=== PATIENT | male | born 1940 | race Caucasian/White ===

== ENCOUNTER 2018-06-09 20:08 | Inpatient (IN) | payer MEDICARE, OTHER, SELFPAY ==
[~2018-06-09] VITALS: Ht 177.8 cm; Wt 102.7 kg
[2018-06-09] MEDS ORDERED: CLOP75TA PO (20:43)
[2018-06-09] MEDS ORDERED: METO25TA35 PO (20:43)
[2018-06-09] MEDS ORDERED: SITA50TA PO (20:43)
[2018-06-09] MEDS ORDERED: METF500T17 PO (20:53)
[2018-06-09] MEDS ORDERED: QUET50TA PO (20:53)
[2018-06-09] MEDS ORDERED: DIVA-59 PO (20:53)
[2018-06-09] MEDS ORDERED: OMEP-110 PO (20:53)
[2018-06-09] MEDS ORDERED: ATOR-2 PO (20:53)
[2018-06-09] MEDS ORDERED: LISI-167 PO (20:53)
[2018-06-09] MEDS ORDERED: TRAZ50TA66 PO (20:53)
--- NOTE | 2018-06-09 21:17 | NUR ---
REPORT TO RADHA
[2018-06-09 21:25] LABS: MEAN CORPUSCULAR HEMOGLOBIN 29.2 pg (27.5-34.5); MEAN CORPUSCULAR HGB CONC 33.2 g/dL (33.2-36.2); MEAN CORPUSCULAR VOLUME 88.1 fL (81-97); MEAN PLATELET VOLUME 7.4 fL (7.4-10.4); PLATELET COUNT 320 x10^3/uL (130-400); RED BLOOD COUNT 4.02 x10^6/uL (4.38-5.82); RED CELL DISTRIBUTION WIDTH 15.6 % (9.4-14.8)
[2018-06-09 21:38] LABS: ALANINE AMINOTRANSFERASE 21 U/L (12-78); ALBUMIN 3.2 g/dL (3.4-5.0); ANION GAP 9 mmol/L (5-15); CALCIUM 9.5 mg/dL (8.5-10.1); CHLORIDE 109 mmol/L (98-107); CREATININE 1.76 mg/dL (0.7-1.3)
[2018-06-09 21:40] LABS: ALKALINE PHOSPHATASE 78 U/L (45-117); BILIRUBIN,TOTAL 0.3 mg/dL (0.2-1.0); TOTAL PROTEIN 6.4 g/dL (6.4-8.2)
[2018-06-09 21:45] LABS: BASOPHILS # (AUTO) 0.14 x10^3/uL (0-0.1); BASOPHILS % (AUTO) 1 % (0-1); EOSINOPHILS % (AUTO) 0 % (1-7); LYMPHOCYTES % (AUTO) 3 % (22-44); MD SCAN; MONOCYTES # (AUTO) 1.33 x10^3/uL (0.2-0.8); MONOCYTES % (AUTO) 7 % (2-9); NEUTROPHILS # (AUTO) 18.07 x10^3/uL (1.8-6.8); NEUTROPHILS % (AUTO) 90 % (42-75)
[2018-06-09] MEDS ORDERED: CEFTRIAXONE PMX 1GM/50ML 50 ML ONE (21:55)
[2018-06-09] MEDS ORDERED: CEFTRIAXONE PMX 1GM/50ML 50 ML IVPB ONE (22:00)
--- NOTE | 2018-06-09 22:08 | NUR ---
BC DRAWN BY HIDE HANDLER. ABX INFUSING. PT AWAKENS TO VOICE BUT NO VERBAL RESPONSE. RR 20-24.
[2018-06-09 22:19] LABS: INTERNATIONAL NORMALIZED RATIO 1.09 (0.93-1.1); PROTHROMBIN TIME 11.4 Seconds (9.6-11.5)
--- NOTE | 2018-06-09 22:20 | NUR ---
PT TO CT VIA [facility].
[2018-06-09 22:25] LABS: TROPONIN I 0.041 ng/mL (0.000-0.045)
[2018-06-09] MEDS ORDERED: AZITHROMYCIN 500 MG in SODIUM CHLORIDE 0.9% 250 ML IV ONE (23:00)
[2018-06-09] MEDS ORDERED: VANCOMYCIN 1,600 MG in SODIUM CHLORIDE 0.9% 250 ML IV ONE (23:00)
[2018-06-09] MEDS ORDERED: VANCOMYCIN PER PHARMACY IV ONE (23:00)
[2018-06-09] MEDS ORDERED: SODIUM CHLORIDE 0.9% 1,000ML IVBOLUS ONE (23:00)
--- NOTE | 2018-06-09 23:43 | NUR ---
UNABLE TO COLLECT URINE SAMPLE WITH STRAIGHT CATH. ERP NOTIFIED.
[2018-06-09] MEDS ORDERED: SODIUM CHLORIDE 0.9% 1,000 ML IV ONE (23:45)
[2018-06-10 00:59] VITALS: BP 112/76
[2018-06-10 01:02] VITALS: BP 112/76
[2018-06-10] MEDS ORDERED: VANCOMYCIN PER PHARMACY MC PRN (02:30)
[2018-06-10] MEDS ORDERED: ONDANSETRON 2MG/ML, 2ML IVPush PRN (02:30)
[2018-06-10] MEDS ORDERED: LABETALOL 5MG/ML, 20ML IVPush PRN (02:30)
[2018-06-10] MEDS ORDERED: LACTATED RINGERS 1,000 ML IV SCH (02:30)
[2018-06-10] MEDS ORDERED: ZOSYN PER PHARMACY MC PRN ×2 (02:30→07:30)
[2018-06-10] MEDS ORDERED: DEXTROSE 4 GM TAB.CHEW PO PRN (02:30)
[2018-06-10] MEDS ORDERED: GLUCAGON 1 MG IM PRN (02:30)
[2018-06-10] MEDS ORDERED: DEXTROSE 50%, 50ML SYRINGE IVPush PRN (02:30)
[2018-06-10] MEDS ORDERED: ACETAMINOPHEN 325 MG TABLET PO PRN (02:30)
[2018-06-10] MEDS: HEPARIN 5,000 UNITS/ML, 1ML SQ SCH ×3 (02:50→20:28)
[2018-06-10] MEDS ORDERED: LABETALOL 5 MG/ML SYRINGE IVPush PRN (03:00)
[2018-06-10] MEDS ORDERED: PHARMACOKINETIC MONITORING MC PRN (03:00)
[2018-06-10] MEDS ORDERED: PIPERACILLIN/TAZO(ZOSYN) 2.25 GM in NS 50 ML IVPB SCH (03:00)
[2018-06-10 03:07] LABS: TROPONIN I 0.047 ng/mL (0.000-0.045)
[2018-06-10 03:11] LABS: HEMOGLOBIN A1C 7.2 % (4.2-6.3)
[2018-06-10] MEDS: INSULIN LISPRO 100 UNITS/ML, PEN SQ-INSULIN SCH ×4 (07:00→21:16)
[2018-06-10 07:09] VITALS: BP 134/83
[2018-06-10] MEDS ORDERED: MAGNESIUM SULFATE PMX 2GM/50ML 50 ML IV ONE (07:30)
[2018-06-10] MEDS ORDERED: POTASSIUM PHOSPHATE 22 MEQ in SODIUM CHLORIDE 0.9% 500 ML IV ONE (07:30)
[2018-06-10] MEDS: SODIUM CHLORIDE FLUSH 10ML SYR IVF SCH ×2 (08:11→20:29)
[2018-06-10] MEDS: PIPERACILLIN/TAZO/PMX 2.25GM 50 ML IVPB SCH ×3 (08:27→21:15)
[2018-06-10 09:30] LABS: TROPONIN I 0.036 ng/mL (0.000-0.045)
[2018-06-10 12:08] VITALS: BP 111/71
[2018-06-10] MEDS: DIVALPROEX 250 MG TABLET.DR PO SCH ×2 (17:08→20:28)
[2018-06-10 19:05] VITALS: BP 135/67
[2018-06-10] MEDS: METOPROLOL TARTRATE 25 MG TABLET PO SCH (20:28)
[2018-06-10] MEDS: QUETIAPINE 25MG TABLET PO SCH (20:28)
[2018-06-10] MEDS: ATORVASTATIN 80 MG TABLET PO SCH (20:28)
[2018-06-11 00:08] VITALS: BP 131/75
[2018-06-11] MEDS ORDERED: LACTATED RINGERS 1,000 ML IV SCH (02:30)
[2018-06-11] MEDS: PIPERACILLIN/TAZO/PMX 2.25GM 50 ML IVPB SCH ×4 (03:16→21:25)
[2018-06-11] MEDS: HEPARIN 5,000 UNITS/ML, 1ML SQ SCH ×3 (04:44→20:24)
[2018-06-11 06:44] LABS: MICROSCOPIC NOT IND
[2018-06-11 06:49] LABS: MEAN CORPUSCULAR HEMOGLOBIN 29.5 pg (27.5-34.5); MEAN CORPUSCULAR HGB CONC 33.9 g/dL (33.2-36.2); MEAN PLATELET VOLUME 7.7 fL (7.4-10.4); PLATELET COUNT 223 x10^3/uL (130-400)
[2018-06-11 06:52] LABS: ALANINE AMINOTRANSFERASE 16 U/L (12-78); ALBUMIN 2.6 g/dL (3.4-5.0); ANION GAP 7 mmol/L (5-15); CALCIUM 8.5 mg/dL (8.5-10.1); CHLORIDE 113 mmol/L (98-107); CREATININE 1.15 mg/dL (0.7-1.3)
[2018-06-11 06:54] LABS: CULTURE INDICATED? NO
[2018-06-11 06:54] LABS: ALKALINE PHOSPHATASE 58 U/L (45-117); BILIRUBIN,TOTAL 0.5 mg/dL (0.2-1.0); TOTAL PROTEIN 5.4 g/dL (6.4-8.2); VANCOMYCIN,RANDOM 3.2 mcg/mL
[2018-06-11] MEDS: INSULIN LISPRO 100 UNITS/ML, PEN SQ-INSULIN SCH ×4 (07:00→21:00)
[2018-06-11] MEDS ORDERED: VANCOMYCIN 2,000 MG in SODIUM CHLORIDE 0.9% 500 ML IV ONE (07:00)
[2018-06-11 07:10] VITALS: BP 134/78
[2018-06-11 07:24] LABS: BASOPHILS # (AUTO) 0.09 x10^3/uL (0-0.1); BASOPHILS % (AUTO) 1 % (0-1); EOSINOPHILS # (AUTO) 0.03 x10^3/uL (0-0.4); EOSINOPHILS % (AUTO) 0 % (1-7); LYMPHOCYTES # (AUTO) 1.22 x10^3/uL (1-3.4); LYMPHOCYTES % (AUTO) 9 % (22-44); MD SCAN; MONOCYTES # (AUTO) 1.61 x10^3/uL (0.2-0.8); MONOCYTES % (AUTO) 11 % (2-9); NEUTROPHILS # (AUTO) 11.16 x10^3/uL (1.8-6.8); NEUTROPHILS % (AUTO) 79 % (42-75)
[2018-06-11] MEDS: SODIUM CHLORIDE 0.45% 1,000 ML IV SCH (07:56)
[2018-06-11] MEDS: SODIUM CHLORIDE FLUSH 10ML SYR IVF SCH ×2 (09:00→20:26)
[2018-06-11] MEDS: METOPROLOL TARTRATE 25 MG TABLET PO SCH ×2 (10:52→20:24)
[2018-06-11] MEDS: DIVALPROEX 250 MG TABLET.DR PO SCH ×3 (10:52→20:23)
[2018-06-11] MEDS: GUAIFENESIN 200 MG TABLET PO SCH ×4 (10:52→20:28)
[2018-06-11] MEDS: OMEPRAZOLE 20 MG CAPSULE.DR PO SCH (10:53)
[2018-06-11] MEDS: CLOPIDOGREL 75 MG TABLET PO SCH (10:53)
[2018-06-11] MEDS: QUETIAPINE 25MG TABLET PO SCH ×2 (11:09→20:24)
[2018-06-11 13:01] VITALS: BP 130/79
[2018-06-11 20:00] VITALS: BP 145/65
[2018-06-11] MEDS: ATORVASTATIN 80 MG TABLET PO SCH (20:24)
[2018-06-12 03:20] VITALS: BP 148/78
[2018-06-12] MEDS: SODIUM CHLORIDE 0.45% 1,000 ML IV SCH ×2 (03:36→22:24)
[2018-06-12] MEDS: PIPERACILLIN/TAZO/PMX 2.25GM 50 ML IVPB SCH (03:36)
[2018-06-12] MEDS: HEPARIN 5,000 UNITS/ML, 1ML SQ SCH ×3 (04:45→22:23)
[2018-06-12] MEDS: GUAIFENESIN 200 MG TABLET PO SCH ×5 (04:45→22:24)
[2018-06-12 06:50] LABS: BASOPHILS # (AUTO) 0.02 x10^3/uL (0-0.1); BASOPHILS % (AUTO) 0 % (0-1); CHLORIDE 112 mmol/L (98-107); EOSINOPHILS # (AUTO) 0.08 x10^3/uL (0-0.4); EOSINOPHILS % (AUTO) 1 % (1-7); LYMPHOCYTES # (AUTO) 0.97 x10^3/uL (1-3.4); LYMPHOCYTES % (AUTO) 10 % (22-44); MD NO; MEAN CORPUSCULAR HEMOGLOBIN 29.2 pg (27.5-34.5); MEAN CORPUSCULAR HGB CONC 33.3 g/dL (33.2-36.2); MEAN CORPUSCULAR VOLUME 87.8 fL (81-97); MEAN PLATELET VOLUME 7.4 fL (7.4-10.4); MONOCYTES # (AUTO) 1.17 x10^3/uL (0.2-0.8); MONOCYTES % (AUTO) 12 % (2-9); NEUTROPHILS # (AUTO) 7.74 x10^3/uL (1.8-6.8); NEUTROPHILS % (AUTO) 78 % (42-75); PLATELET COUNT 201 x10^3/uL (130-400); RED BLOOD COUNT 2.64 x10^6/uL (4.38-5.82); RED CELL DISTRIBUTION WIDTH 15.6 % (9.4-14.8)
[2018-06-12 06:58] LABS: ALANINE AMINOTRANSFERASE 16 U/L (12-78); ALBUMIN 2.3 g/dL (3.4-5.0); ALKALINE PHOSPHATASE 54 U/L (45-117); ANION GAP 4 mmol/L (5-15); BILIRUBIN,TOTAL 0.3 mg/dL (0.2-1.0); CALCIUM 8.5 mg/dL (8.5-10.1); CREATININE 0.82 mg/dL (0.7-1.3)
[2018-06-12] MEDS: INSULIN LISPRO 100 UNITS/ML, PEN SQ-INSULIN SCH ×4 (07:00→22:25)
[2018-06-12] MEDS: DOXYCYCLINE 100MG TABLET PO SCH ×2 (09:00→22:25)
[2018-06-12] MEDS: OMEPRAZOLE 20 MG CAPSULE.DR PO SCH (09:00)
[2018-06-12] MEDS: CLOPIDOGREL 75 MG TABLET PO SCH (09:00)
[2018-06-12] MEDS: AMOXICILLIN/CLAV 875-125MG TABLET PO SCH ×2 (09:00→22:24)
[2018-06-12] MEDS: METOPROLOL TARTRATE 25 MG TABLET PO SCH ×2 (09:00→22:23)
[2018-06-12] MEDS: SODIUM CHLORIDE FLUSH 10ML SYR IVF SCH ×2 (09:00→22:25)
[2018-06-12] MEDS: DIVALPROEX 250 MG TABLET.DR PO SCH ×3 (09:00→22:24)
[2018-06-12] MEDS: QUETIAPINE 25MG TABLET PO SCH ×2 (09:00→22:24)
[2018-06-12] MEDS: metFORMIN 500 MG TABLET PO SCH ×2 (09:00→22:24)
[2018-06-12] MEDS: LISINOPRIL 10 MG TABLET PO SCH (09:00)
[2018-06-12 13:32] VITALS: BP 139/72
[2018-06-12] MEDS ORDERED: FERROUS SULFATE 325 MG TABLET PO SCH (17:00)
[2018-06-12 18:42] VITALS: BP 147/83
[2018-06-12] MEDS: ATORVASTATIN 80 MG TABLET PO SCH (22:23)
[2018-06-13 02:19] VITALS: BP 139/82
[2018-06-13] MEDS: HEPARIN 5,000 UNITS/ML, 1ML SQ SCH (06:07)
[2018-06-13] MEDS: GUAIFENESIN 200 MG TABLET PO SCH ×4 (06:31→20:58)
[2018-06-13] MEDS: INSULIN LISPRO 100 UNITS/ML, PEN SQ-INSULIN SCH ×4 (07:00→20:59)
[2018-06-13 07:05] VITALS: BP 149/76
[2018-06-13] MEDS ORDERED: DOXYCYCLINE 100MG TABLET PO SCH (07:05)
[2018-06-13 07:20] LABS: BASOPHILS # (AUTO) 0.05 x10^3/uL (0-0.1); BASOPHILS % (AUTO) 1 % (0-1); EOSINOPHILS # (AUTO) 0.25 x10^3/uL (0-0.4); EOSINOPHILS % (AUTO) 4 % (1-7); LYMPHOCYTES # (AUTO) 1.38 x10^3/uL (1-3.4); LYMPHOCYTES % (AUTO) 19 % (22-44); MD NO; MEAN CORPUSCULAR HEMOGLOBIN 28.9 pg (27.5-34.5); MEAN CORPUSCULAR HGB CONC 32.8 g/dL (33.2-36.2); MEAN CORPUSCULAR VOLUME 88.1 fL (81-97); MEAN PLATELET VOLUME 7.2 fL (7.4-10.4); MONOCYTES # (AUTO) 0.79 x10^3/uL (0.2-0.8); MONOCYTES % (AUTO) 11 % (2-9); NEUTROPHILS # (AUTO) 4.69 x10^3/uL (1.8-6.8); NEUTROPHILS % (AUTO) 66 % (42-75); PLATELET COUNT 231 x10^3/uL (130-400); RED BLOOD COUNT 2.75 x10^6/uL (4.38-5.82); RED CELL DISTRIBUTION WIDTH 15.5 % (9.4-14.8)
[2018-06-13 07:29] LABS: ALANINE AMINOTRANSFERASE 15 U/L (12-78); ALBUMIN 2.3 g/dL (3.4-5.0); ANION GAP 3 mmol/L (5-15); CALCIUM 8.7 mg/dL (8.5-10.1); CHLORIDE 117 mmol/L (98-107); CREATININE 0.82 mg/dL (0.7-1.3)
[2018-06-13 07:31] LABS: ALKALINE PHOSPHATASE 59 U/L (45-117); BILIRUBIN,TOTAL 0.3 mg/dL (0.2-1.0); TOTAL PROTEIN 5.3 g/dL (6.4-8.2)
[2018-06-13] MEDS: QUETIAPINE 25MG TABLET PO SCH ×2 (08:55→20:58)
[2018-06-13] MEDS: AMOXICILLIN/CLAV 875-125MG TABLET PO SCH ×2 (08:56→20:58)
[2018-06-13] MEDS: METOPROLOL TARTRATE 25 MG TABLET PO SCH ×2 (08:56→20:59)
[2018-06-13] MEDS: SODIUM CHLORIDE FLUSH 10ML SYR IVF SCH ×2 (08:56→20:59)
[2018-06-13] MEDS: OMEPRAZOLE 20 MG CAPSULE.DR PO SCH ×2 (09:00→20:58)
[2018-06-13] MEDS ORDERED: POLYETHYLENE GLYCOL 17 GM PACKET NG PRN (09:00)
[2018-06-13] MEDS: FERROUS SULFATE 325 MG TABLET PO SCH ×2 (09:01→16:59)
[2018-06-13] MEDS: metFORMIN 500 MG TABLET PO SCH ×2 (09:06→20:58)
[2018-06-13] MEDS ORDERED: DEXTROSE 50%, 50ML SYRINGE IVPush PRN (09:30)
[2018-06-13] MEDS: LISINOPRIL 10 MG TABLET PO SCH (10:59)
[2018-06-13] MEDS: DOXYCYCLINE 100MG TABLET PO SCH ×2 (10:59→20:59)
[2018-06-13] MEDS: DIVALPROEX 125 MG CAP.SPRINK PO SCH ×3 (10:59→20:58)
[2018-06-13] MEDS: CLOPIDOGREL 75 MG TABLET PO SCH (10:59)
[2018-06-13 12:03] LABS: OCCULT BLOOD POSITIVE (NEGATIVE)
[2018-06-13] MEDS ORDERED: PANTOPRAZOLE 40 MG IV IVPush SCH (13:00)
[2018-06-13 20:32] VITALS: BP 141/87
[2018-06-13] MEDS: ATORVASTATIN 80 MG TABLET PO SCH (20:58)
[2018-06-14 01:49] VITALS: BP 146/90
[2018-06-14 05:35] LABS: BASOPHILS # (AUTO) 0.03 x10^3/uL (0-0.1); BASOPHILS % (AUTO) 0 % (0-1); EOSINOPHILS # (AUTO) 0.28 x10^3/uL (0-0.4); EOSINOPHILS % (AUTO) 3 % (1-7); LYMPHOCYTES # (AUTO) 1.36 x10^3/uL (1-3.4); LYMPHOCYTES % (AUTO) 15 % (22-44); MD NO; MEAN CORPUSCULAR HEMOGLOBIN 29.3 pg (27.5-34.5); MEAN CORPUSCULAR HGB CONC 33.5 g/dL (33.2-36.2); MEAN CORPUSCULAR VOLUME 87.5 fL (81-97); MEAN PLATELET VOLUME 7.1 fL (7.4-10.4); MONOCYTES # (AUTO) 1.01 x10^3/uL (0.2-0.8); MONOCYTES % (AUTO) 12 % (2-9); NEUTROPHILS # (AUTO) 6.16 x10^3/uL (1.8-6.8); NEUTROPHILS % (AUTO) 70 % (42-75); PLATELET COUNT 258 x10^3/uL (130-400); RED BLOOD COUNT 2.75 x10^6/uL (4.38-5.82); RED CELL DISTRIBUTION WIDTH 15.4 % (9.4-14.8)
[2018-06-14 05:41] LABS: ALANINE AMINOTRANSFERASE 17 U/L (12-78); ALBUMIN 2.3 g/dL (3.4-5.0); ALKALINE PHOSPHATASE 57 U/L (45-117); BILIRUBIN,TOTAL 0.3 mg/dL (0.2-1.0); CREATININE 0.83 mg/dL (0.7-1.3); TOTAL PROTEIN 5.1 g/dL (6.4-8.2)
[2018-06-14 05:57] LABS: ANION GAP 5 mmol/L (5-15); CHLORIDE 113 mmol/L (98-107)
[2018-06-14] MEDS: GUAIFENESIN 200 MG TABLET PO SCH ×4 (07:00→21:10)
[2018-06-14] MEDS: INSULIN LISPRO 100 UNITS/ML, PEN SQ-INSULIN SCH ×4 (08:02→21:11)
[2018-06-14 08:16] VITALS: BP 147/72
[2018-06-14] MEDS: DOXYCYCLINE 100MG TABLET PO SCH ×2 (11:28→21:10)
[2018-06-14] MEDS: QUETIAPINE 25MG TABLET PO SCH ×2 (11:28→21:11)
[2018-06-14] MEDS: OMEPRAZOLE 20 MG CAPSULE.DR PO SCH ×2 (11:29→21:10)
[2018-06-14] MEDS: metFORMIN 500 MG TABLET PO SCH ×2 (11:29→21:10)
[2018-06-14] MEDS: METOPROLOL TARTRATE 25 MG TABLET PO SCH ×2 (11:29→21:10)
[2018-06-14] MEDS: LISINOPRIL 10 MG TABLET PO SCH (11:29)
[2018-06-14] MEDS: AMOXICILLIN/CLAV 875-125MG TABLET PO SCH ×2 (11:29→21:10)
[2018-06-14] MEDS: CLOPIDOGREL 75 MG TABLET PO SCH (11:29)
[2018-06-14] MEDS: FERROUS SULFATE 325 MG TABLET PO SCH ×2 (11:30→16:03)
[2018-06-14] MEDS: DIVALPROEX 125 MG CAP.SPRINK PO SCH ×3 (11:38→21:10)
[2018-06-14] MEDS: SODIUM CHLORIDE FLUSH 10ML SYR IVF SCH ×2 (11:43→21:00)
[2018-06-14 19:42] VITALS: BP 132/82
[2018-06-14] MEDS: ATORVASTATIN 80 MG TABLET PO SCH (21:10)
[2018-06-15] MEDS: GUAIFENESIN 200 MG TABLET PO SCH ×4 (05:40→20:21)
[2018-06-15] MEDS: INSULIN LISPRO 100 UNITS/ML, PEN SQ-INSULIN SCH ×4 (07:00→20:55)
[2018-06-15 08:01] VITALS: BP 137/73
[2018-06-15] MEDS: SODIUM CHLORIDE FLUSH 10ML SYR IVF SCH ×2 (09:00→20:55)
[2018-06-15] MEDS: DIVALPROEX 125 MG CAP.SPRINK PO SCH ×3 (09:18→20:58)
[2018-06-15] MEDS: DOXYCYCLINE 100MG TABLET PO SCH ×2 (09:19→20:20)
[2018-06-15] MEDS: OMEPRAZOLE 20 MG CAPSULE.DR PO SCH ×2 (09:19→20:21)
[2018-06-15] MEDS: metFORMIN 500 MG TABLET PO SCH ×2 (09:20→20:20)
[2018-06-15] MEDS: FERROUS SULFATE 325 MG TABLET PO SCH ×2 (09:21→17:13)
[2018-06-15] MEDS: QUETIAPINE 25MG TABLET PO SCH ×2 (09:21→20:22)
[2018-06-15] MEDS: CLOPIDOGREL 75 MG TABLET PO SCH (09:22)
[2018-06-15] MEDS: AMOXICILLIN/CLAV 875-125MG TABLET PO SCH ×2 (09:22→20:22)
[2018-06-15] MEDS: LISINOPRIL 10 MG TABLET PO SCH (09:22)
[2018-06-15] MEDS: METOPROLOL TARTRATE 25 MG TABLET PO SCH ×2 (09:23→20:22)
[2018-06-15 14:02] VITALS: BP 148/83
[2018-06-15 20:19] VITALS: BP 145/89
[2018-06-15] MEDS: ATORVASTATIN 80 MG TABLET PO SCH (20:21)
[2018-06-16 03:20] VITALS: BP 134/69
[2018-06-16] MEDS: GUAIFENESIN 200 MG TABLET PO SCH ×3 (05:45→14:54)
[2018-06-16 05:55] LABS: BASOPHILS # (AUTO) 0.04 x10^3/uL (0-0.1); BASOPHILS % (AUTO) 1 % (0-1); EOSINOPHILS # (AUTO) 0.33 x10^3/uL (0-0.4); EOSINOPHILS % (AUTO) 5 % (1-7); LYMPHOCYTES # (AUTO) 1.41 x10^3/uL (1-3.4); LYMPHOCYTES % (AUTO) 19 % (22-44); MD NO; MEAN CORPUSCULAR HEMOGLOBIN 29.6 pg (27.5-34.5); MEAN CORPUSCULAR HGB CONC 33.6 g/dL (33.2-36.2); MEAN CORPUSCULAR VOLUME 88.2 fL (81-97); MEAN PLATELET VOLUME 6.9 fL (7.4-10.4); MONOCYTES # (AUTO) 0.86 x10^3/uL (0.2-0.8); MONOCYTES % (AUTO) 12 % (2-9); NEUTROPHILS # (AUTO) 4.63 x10^3/uL (1.8-6.8); NEUTROPHILS % (AUTO) 64 % (42-75); PLATELET COUNT 307 x10^3/uL (130-400); RED BLOOD COUNT 2.88 x10^6/uL (4.38-5.82); RED CELL DISTRIBUTION WIDTH 16.1 % (9.4-14.8)
[2018-06-16] MEDS: INSULIN LISPRO 100 UNITS/ML, PEN SQ-INSULIN SCH ×2 (07:00→11:00)
[2018-06-16 07:49] VITALS: BP 145/88
[2018-06-16] MEDS: AMOXICILLIN/CLAV 875-125MG TABLET PO SCH (09:00)
[2018-06-16] MEDS: SODIUM CHLORIDE FLUSH 10ML SYR IVF SCH (09:00)
[2018-06-16] MEDS: CLOPIDOGREL 75 MG TABLET PO SCH (09:00)
[2018-06-16] MEDS: OMEPRAZOLE 20 MG CAPSULE.DR PO SCH (09:00)
[2018-06-16] MEDS: metFORMIN 500 MG TABLET PO SCH (09:54)
[2018-06-16] MEDS: DOXYCYCLINE 100MG TABLET PO SCH (09:55)
[2018-06-16] MEDS: QUETIAPINE 25MG TABLET PO SCH (09:57)
[2018-06-16] MEDS: DIVALPROEX 125 MG CAP.SPRINK PO SCH ×2 (09:57→14:54)
[2018-06-16] MEDS: METOPROLOL TARTRATE 25 MG TABLET PO SCH (10:00)
[2018-06-16] MEDS: LISINOPRIL 10 MG TABLET PO SCH (10:01)
[2018-06-16] MEDS: FERROUS SULFATE 325 MG TABLET PO SCH (10:01)
[2018-06-16 13:06] VITALS: BP 148/83
[2018-06-16] MEDS ORDERED: GUAI200T3 PO ×2 (14:08→14:21)
[2018-06-16] MEDS ORDERED: AMOX1TAB12 PO ×2 (14:08→14:21)
[2018-06-16] MEDS ORDERED: DOXY100T PO ×2 (14:08→14:21)
[2018-06-16] MEDS ORDERED: FERR-51 PO ×2 (14:08→14:21)
[2018-06-16] MEDS ORDERED: OMEP-110 PO ×2 (14:08→14:21)
== END 2018-06-16 15:46 | disposition home or self-care (01) | DRG 871 ==
LOC: ED 23:49 → EDIP 23:50 → 4EST 06-10 00:43
PROVIDERS: ADMIT Family Medicine; ATTEND Family Medicine
PROC: 0T9B70Z Drainage of Bladder with Drainage Device, Via Natural or Artificial Opening (ICD-10-PCS; principal; 2018-06-11)
DX: A41.9 Sepsis, unspecified organism (principal); G93.41 Metabolic encephalopathy; J18.1 Lobar pneumonia, unspecified organism; J96.21 Acute and chronic respiratory failure with hypoxia; R65.21 Severe sepsis with septic shock; E87.0 Hyperosmolality and hypernatremia; E87.2 Acidosis; N17.9 Acute kidney failure, unspecified; D50.9 Iron deficiency anemia, unspecified; E11.65 Type 2 diabetes mellitus with hyperglycemia; E78.5 Hyperlipidemia, unspecified; E83.39 Other disorders of phosphorus metabolism; E83.42 Hypomagnesemia; F03.90 Unspecified dementia, unspecified severity, without behavioral disturbance, psychotic disturbance, mood disturbance, and anxiety; I10 Essential (primary) hypertension
CPT/HCPCS: 36415; 70450; 71045; 80053; 80202; 81003; 82272; 82607; 82728; 82962; 83036; 83540; 83550; 83605; 83690; 83735; 84100; 84439; 84443; 84481; 84484; 85025; 85610; 87040; 93005; 96365; 96366; 96367; 96368; 96375; G0378; J0456; J0696; J1644; J2543; J3370; J1815; J3475; J7030; J7040; J7050; J7120

== ENCOUNTER 2018-07-11 14:29 | Inpatient (IN) | payer MEDICARE ==
[~2018-07-11] VITALS: Ht 188 cm; Wt 100.7 kg
[~2018-07-11 14:29] MED LIST: AMOX1TAB12 PO; ATOR-2 PO; CLOP75TA PO; DIVA-59 PO; DOXY100T PO; FERR-51 PO; GUAI200T3 PO; LISI-167 PO; METF500T17 PO; METO25TA35 PO; OMEP-110 PO; QUET50TA PO; SITA50TA PO; TRAZ50TA66 PO
[2018-07-11] MEDS ORDERED: PANTOPRAZOLE 80 MG in SODIUM CHLORIDE 0.9% 50 ML IVPB ONE (14:38)
[2018-07-11] MEDS ORDERED: SODIUM CHLORIDE 0.9% 1,000ML IVBOLUS ONE (15:00)
[2018-07-11] MEDS ORDERED: SODIUM CHLORIDE FLUSH 10ML SYR IVF ONE (15:00)
[2018-07-11 15:05] LABS: MEAN CORPUSCULAR HEMOGLOBIN 27.1 pg (27.5-34.5); MEAN CORPUSCULAR HGB CONC 31.8 g/dL (33.2-36.2); MEAN CORPUSCULAR VOLUME 85.3 fL (81-97); MEAN PLATELET VOLUME 6.3 fL (7.4-10.4); PLATELET COUNT 480 x10^3/uL (130-400); RED BLOOD COUNT 3.97 x10^6/uL (4.38-5.82); RED CELL DISTRIBUTION WIDTH 15.3 % (9.4-14.8)
[2018-07-11 15:12] LABS: ALANINE AMINOTRANSFERASE 19 U/L (12-78); ALBUMIN 2.7 g/dL (3.4-5.0); ANION GAP 10 mmol/L (5-15); CALCIUM 8.8 mg/dL (8.5-10.1); CHLORIDE 104 mmol/L (98-107); INTERNATIONAL NORMALIZED RATIO 1.12 (0.93-1.1); PROTHROMBIN TIME 11.7 Seconds (9.6-11.5)
[2018-07-11 15:15] LABS: ALKALINE PHOSPHATASE 89 U/L (45-117); BILIRUBIN,TOTAL 0.5 mg/dL (0.2-1.0); CREATININE 0.97 mg/dL (0.7-1.3); TOTAL PROTEIN 6.6 g/dL (6.4-8.2)
--- NOTE | 2018-07-11 15:18 | NUR ---
EMT STUDENT TO ESTABLISH IV, AND PROTONIX GTT STARTED. PT TB ADMITTED.
--- NOTE | 2018-07-11 15:40 | NUR ---
1X EPISODE OF COFFEE GROUD EMESIS
--- NOTE | 2018-07-11 15:42 | NUR ---
patient report received. moved to room 40. patient is from longterm. patient is a poor historian, and has difficulty telling staff about his history. he was seen here in last month for GI bleed. he is being admitted for gi bleed. h/h low and is on plavix. gi bleed vomit coffee emesis, not witnessed. longterm states throwing up in route.
--- NOTE | 2018-07-11 15:42 | NUR ---
PT ATTEMPTING TO CLIMB OUT OF BED, ATTEMPTED COMMUNICATION VIA BOARD AND PT PUSHED BOARD AWAY AND ATTEMPTED TO CLIMB OUT OF BED. MOVE PT TO ROOM WITH SITTER - ROOM 40. IV ESTABLISHED AND DEISYIX RUNNING, REPORT TO SUNDEEP CALL.
--- NOTE | 2018-07-11 16:01 | NUR ---
diego with [employer] public guardians office called and shed information. he is non verbal and only can communicate by writing down things and even then only responds appropriate occasionally. patient has been non communicative for years. they were appointed to [facility] guardian a year ago and diego states since that time has been non communicative. no family none. one terminal worker friend brady adan - former poa - now poa is [facility] public guardian. brady adan number is [phone]. [facility] number [phone]. they need to be called with status changes, discharge, consents and . he lives at [facility] there number is [phone].
--- NOTE | 2018-07-11 16:05 | NUR ---
diego from [facility] has past medical history that includes: diabetes 2, gi bleed, dementia with behaviorial disturbances, aphasia, cva, dislipidemia, acute kidney injury, htn, delierium, non st elevated myocardial infarction.
[2018-07-11 16:12] LABS: BASOPHILS # (AUTO) 0.14 x10^3/uL (0-0.1); BASOPHILS % (AUTO) 1 % (0-1); EOSINOPHILS % (AUTO) 0 % (1-7); LYMPHOCYTES # (AUTO) 0.79 x10^3/uL (1-3.4); LYMPHOCYTES % (AUTO) 6 % (22-44); MD SCAN; MONOCYTES # (AUTO) 1.22 x10^3/uL (0.2-0.8); MONOCYTES % (AUTO) 9 % (2-9); NEUTROPHILS # (AUTO) 11.19 x10^3/uL (1.8-6.8); NEUTROPHILS % (AUTO) 84 % (42-75)
--- NOTE | 2018-07-11 17:12 | NUR ---
REPORT GIVEN TO ONEYDA GREEN. PATIENT TAKEN UPSTAIRS WITH TECH. VSS. FLUID INFUSING.
[2018-07-11 17:36] VITALS: BP 173/105
[2018-07-11] MEDS ORDERED: SODIUM CHLORIDE 0.9% 1,000 ML IV SCH (18:00)
[2018-07-11] MEDS ORDERED: ONDANSETRON 2MG/ML, 2ML IVPush PRN (18:00)
[2018-07-11] MEDS: PANTOPRAZOLE 80 MG in SODIUM CHLORIDE 0.9% 100 ML IV SCH (20:04)
[2018-07-11] MEDS: PIPERACILLIN/TAZO/PMX 3.375GM 50 ML IV SCH (20:04)
[2018-07-11] MEDS: INSULIN LISPRO 100 UNITS/ML, PEN SQ-INSULIN SCH (21:00)
[2018-07-11 21:03] VITALS: BP 156/80
[2018-07-11] MEDS: METOPROLOL TARTRATE 25 MG TABLET PO SCH (22:09)
[2018-07-12] MEDS ORDERED: POTASSIUM CHLORIDE 20 MEQ in SODIUM CHLORIDE 0.9% 1,000 ML IV SCH ×3 (00:30→17:51)
[2018-07-12 01:59] VITALS: BP 110/64
[2018-07-12] MEDS: PIPERACILLIN/TAZO/PMX 3.375GM 50 ML IV SCH ×3 (02:08→20:20)
[2018-07-12] MEDS: PANTOPRAZOLE 80 MG in SODIUM CHLORIDE 0.9% 100 ML IV SCH ×2 (03:10→20:15)
[2018-07-12 04:49] LABS: ALANINE AMINOTRANSFERASE 13 U/L (12-78); ALBUMIN 2.3 g/dL (3.4-5.0); ANION GAP 5 mmol/L (5-15); CALCIUM 8.3 mg/dL (8.5-10.1); CHLORIDE 110 mmol/L (98-107); CREATININE 1.04 mg/dL (0.7-1.3)
[2018-07-12 04:51] LABS: ALKALINE PHOSPHATASE 72 U/L (45-117); BILIRUBIN,TOTAL 0.6 mg/dL (0.2-1.0); TOTAL PROTEIN 5.7 g/dL (6.4-8.2)
[2018-07-12 05:14] LABS: BASOPHILS % (AUTO) 0 % (0-1); EOSINOPHILS # (AUTO) 0.01 x10^3/uL (0-0.4); EOSINOPHILS % (AUTO) 0 % (1-7); LYMPHOCYTES # (AUTO) 1.07 x10^3/uL (1-3.4); LYMPHOCYTES % (AUTO) 7 % (22-44); MD NO; MEAN CORPUSCULAR HEMOGLOBIN 27.9 pg (27.5-34.5); MEAN CORPUSCULAR VOLUME 84.7 fL (81-97); MEAN PLATELET VOLUME 6.5 fL (7.4-10.4); MONOCYTES # (AUTO) 1.38 x10^3/uL (0.2-0.8); MONOCYTES % (AUTO) 9 % (2-9); NEUTROPHILS % (AUTO) 83 % (42-75); PLATELET COUNT 409 x10^3/uL (130-400); RED BLOOD COUNT 3.21 x10^6/uL (4.38-5.82); RED CELL DISTRIBUTION WIDTH 15.6 % (9.4-14.8)
[2018-07-12 06:30] LABS: MICROSCOPIC AUTO
[2018-07-12 06:31] LABS: CULTURE INDICATED? NO
[2018-07-12] MEDS: INSULIN LISPRO 100 UNITS/ML, PEN SQ-INSULIN SCH ×4 (07:00→20:26)
[2018-07-12] MEDS ORDERED: MAGNESIUM SULFATE PMX 2GM/50ML 50 ML IV ONE ×2 (09:00→19:00)
[2018-07-12] MEDS ORDERED: POTASSIUM CHLORIDE 40 MEQ in SODIUM CHLORIDE 0.9% 500 ML IV ONE (09:00)
[2018-07-12] MEDS ORDERED: SODIUM PHOSPHATE 30 MMOL in SODIUM CHLORIDE 0.9% 500 ML IV ONE (09:30)
[2018-07-12] MEDS: METOPROLOL TARTRATE 25 MG TABLET PO SCH ×2 (10:19→20:22)
[2018-07-12 10:20] VITALS: BP 149/75
[2018-07-12] MEDS: SODIUM CHLORIDE 0.9% 1,000 ML IV SCH (12:37)
[2018-07-12] MEDS ORDERED: CLOP75TA PO (13:23)
[2018-07-12] MEDS ORDERED: DIVA125T31 PO (13:23)
[2018-07-12] MEDS ORDERED: METF500T17 PO (13:23)
[2018-07-12 14:00] VITALS: BP 157/79
[2018-07-12 19:47] VITALS: BP 139/79
[2018-07-13 01:52] VITALS: BP 116/69
[2018-07-13] MEDS: PIPERACILLIN/TAZO/PMX 3.375GM 50 ML IV SCH (02:10)
[2018-07-13 06:13] LABS: BASOPHILS # (AUTO) 0.03 x10^3/uL (0-0.1); BASOPHILS % (AUTO) 0 % (0-1); EOSINOPHILS # (AUTO) 0.06 x10^3/uL (0-0.4); EOSINOPHILS % (AUTO) 1 % (1-7); LYMPHOCYTES # (AUTO) 0.98 x10^3/uL (1-3.4); LYMPHOCYTES % (AUTO) 12 % (22-44); MD NO; MEAN CORPUSCULAR HGB CONC 32.9 g/dL (33.2-36.2); MEAN CORPUSCULAR VOLUME 85.1 fL (81-97); MONOCYTES # (AUTO) 0.73 x10^3/uL (0.2-0.8); MONOCYTES % (AUTO) 9 % (2-9); NEUTROPHILS # (AUTO) 6.71 x10^3/uL (1.8-6.8); NEUTROPHILS % (AUTO) 79 % (42-75); PLATELET COUNT 370 x10^3/uL (130-400); RED BLOOD COUNT 2.88 x10^6/uL (4.38-5.82); RED CELL DISTRIBUTION WIDTH 15.5 % (9.4-14.8)
[2018-07-13 06:22] LABS: ANION GAP 4 mmol/L (5-15); CALCIUM 7.7 mg/dL (8.5-10.1); CHLORIDE 116 mmol/L (98-107)
[2018-07-13 06:23] LABS: CREATININE 0.83 mg/dL (0.7-1.3)
[2018-07-13] MEDS: PANTOPRAZOLE 80 MG in SODIUM CHLORIDE 0.9% 100 ML IV SCH (06:30)
[2018-07-13] MEDS: SODIUM CHLORIDE 0.9% 1,000 ML IV SCH ×2 (06:32→16:35)
[2018-07-13] MEDS ORDERED: CALCIUM GLUCONATE 9.2 MEQ in SODIUM CHLORIDE 0.9% 100 ML IV ONE (07:00)
[2018-07-13] MEDS: PANTOPRAZOLE 40 MG IV IVPush SCH ×2 (07:00→21:13)
[2018-07-13] MEDS: INSULIN LISPRO 100 UNITS/ML, PEN SQ-INSULIN SCH ×4 (07:00→21:16)
[2018-07-13] MEDS ORDERED: SODIUM PHOSPHATE 30 MMOL in SODIUM CHLORIDE 0.9% 500 ML IV ONE (07:00)
[2018-07-13] MEDS ORDERED: DOCUSATE 100 MG CAPSULE PO PRN (07:00)
[2018-07-13 08:06] VITALS: BP 164/88
[2018-07-13] MEDS: SUCRALFATE 1 GM TABLET PO SCH ×3 (09:00→21:27)
[2018-07-13] MEDS: POTASSIUM CHLORIDE 10% 40 MEQ/30 ML UDC PO SCH ×2 (09:00→21:23)
[2018-07-13] MEDS: METOPROLOL TARTRATE 25 MG TABLET PO SCH ×2 (09:43→21:25)
[2018-07-13] MEDS: IRON SUCROSE COMPLEX 100MG/5ML IV SCH (09:43)
--- NOTE | 2018-07-13 09:58 | NUR ---
REC GROUND/THIN; swallow precautions sheet posted in room Addendum: 07/13/18 at [address] Amended: Links added.
[2018-07-13 13:33] VITALS: BP 155/74
[2018-07-13 20:50] VITALS: BP 147/72
[2018-07-13] MEDS ORDERED: POTASSIUM CHLORIDE 20 MEQ PACKET ONE (21:05)
[2018-07-14] MEDS: SODIUM CHLORIDE 0.9% 1,000 ML IV SCH ×3 (00:04→16:30)
[2018-07-14 01:28] VITALS: BP 140/74
[2018-07-14 05:56] LABS: MEAN CORPUSCULAR HEMOGLOBIN 27.7 pg (27.5-34.5); MEAN CORPUSCULAR HGB CONC 32.2 g/dL (33.2-36.2); MEAN PLATELET VOLUME 6.6 fL (7.4-10.4); PLATELET COUNT 333 x10^3/uL (130-400); RED BLOOD COUNT 2.65 x10^6/uL (4.38-5.82)
[2018-07-14 06:10] LABS: ALANINE AMINOTRANSFERASE 18 U/L (12-78); ALBUMIN 1.8 g/dL (3.4-5.0); ANION GAP 5 mmol/L (5-15); CHLORIDE 119 mmol/L (98-107); CREATININE 0.81 mg/dL (0.7-1.3)
[2018-07-14 06:12] LABS: ALKALINE PHOSPHATASE 62 U/L (45-117)
[2018-07-14 06:33] LABS: BILIRUBIN,TOTAL 0.2 mg/dL (0.2-1.0)
[2018-07-14 06:38] LABS: MD MORPH REVIEW ONLY
[2018-07-14 06:39] LABS: BASOPHILS # (AUTO) 0.04 x10^3/uL (0-0.1); BASOPHILS % (AUTO) 1 % (0-1); EOSINOPHILS # (AUTO) 0.14 x10^3/uL (0-0.4); EOSINOPHILS % (AUTO) 2 % (1-7); LYMPHOCYTES # (AUTO) 1.06 x10^3/uL (1-3.4); LYMPHOCYTES % (AUTO) 15 % (22-44); MONOCYTES # (AUTO) 0.54 x10^3/uL (0.2-0.8); MONOCYTES % (AUTO) 8 % (2-9); NEUTROPHILS # (AUTO) 5.19 x10^3/uL (1.8-6.8); NEUTROPHILS % (AUTO) 75 % (42-75)
[2018-07-14 06:41] LABS: ANISOCYTOSIS 1+; POLYCHROMASIA 1+
[2018-07-14 06:46] LABS: <PLATELET ESTIMATE> ADEQUATE; <PLT MORPHOLOGY> NORMAL PLT MORPH; ECHINOCYTES 1+; TARGET CELLS 1+
[2018-07-14] MEDS: INSULIN LISPRO 100 UNITS/ML, PEN SQ-INSULIN SCH ×4 (07:00→21:00)
[2018-07-14] MEDS: PANTOPRAZOLE 40 MG IV IVPush SCH ×2 (07:00→21:18)
[2018-07-14 08:23] VITALS: BP 161/72
[2018-07-14] MEDS: IRON SUCROSE COMPLEX 100MG/5ML IV SCH (10:52)
[2018-07-14] MEDS: SUCRALFATE 1 GM TABLET PO SCH ×3 (10:53→21:19)
[2018-07-14] MEDS: METOPROLOL TARTRATE 25 MG TABLET PO SCH ×2 (10:53→21:18)
[2018-07-14 13:40] VITALS: BP 159/83
[2018-07-14 18:28] VITALS: BP 157/77
[2018-07-15] MEDS: SODIUM CHLORIDE 0.9% 1,000 ML IV SCH (00:23)
[2018-07-15 05:43] LABS: BASOPHILS # (AUTO) 0.04 x10^3/uL (0-0.1); BASOPHILS % (AUTO) 1 % (0-1); EOSINOPHILS % (AUTO) 3 % (1-7); LYMPHOCYTES % (AUTO) 15 % (22-44); MD NO; MEAN CORPUSCULAR HEMOGLOBIN 27.8 pg (27.5-34.5); MEAN CORPUSCULAR HGB CONC 32.4 g/dL (33.2-36.2); MEAN CORPUSCULAR VOLUME 85.9 fL (81-97); MEAN PLATELET VOLUME 6.1 fL (7.4-10.4); MONOCYTES # (AUTO) 0.64 x10^3/uL (0.2-0.8); MONOCYTES % (AUTO) 9 % (2-9); NEUTROPHILS # (AUTO) 4.96 x10^3/uL (1.8-6.8); NEUTROPHILS % (AUTO) 73 % (42-75); PLATELET COUNT 389 x10^3/uL (130-400); RED BLOOD COUNT 2.87 x10^6/uL (4.38-5.82); RED CELL DISTRIBUTION WIDTH 16.1 % (9.4-14.8)
[2018-07-15 05:51] VITALS: BP 172/48
[2018-07-15 05:56] LABS: ANION GAP 6 mmol/L (5-15); CHLORIDE 116 mmol/L (98-107)
[2018-07-15 05:59] LABS: ALANINE AMINOTRANSFERASE 16 U/L (12-78); ALKALINE PHOSPHATASE 70 U/L (45-117); BILIRUBIN,TOTAL 0.4 mg/dL (0.2-1.0); TOTAL PROTEIN 5.2 g/dL (6.4-8.2)
[2018-07-15 06:21] VITALS: BP 155/82
[2018-07-15] MEDS: INSULIN LISPRO 100 UNITS/ML, PEN SQ-INSULIN SCH ×2 (07:00→11:00)
[2018-07-15 07:06] VITALS: BP 157/79
[2018-07-15] MEDS ORDERED: POTASSIUM CHLORIDE 20 MEQ TAB.ER.PRT PO SCH (08:00)
[2018-07-15] MEDS: IRON SUCROSE COMPLEX 100MG/5ML IV SCH (09:37)
[2018-07-15] MEDS: PANTOPRAZOLE 40 MG IV IVPush SCH (09:37)
[2018-07-15] MEDS: SUCRALFATE 1 GM TABLET PO SCH (09:38)
[2018-07-15] MEDS: METOPROLOL TARTRATE 25 MG TABLET PO SCH (09:38)
[2018-07-15] MEDS ORDERED: SUCR1TAB33 PO (11:40)
[2018-07-15 12:04] VITALS: BP 169/80
== END 2018-07-15 15:30 | disposition home or self-care (01) | DRG 871 ==
LOC: ED 16:04 → EDIP 16:22 → 4EST 17:32
PROVIDERS: ADMIT Internal Medicine; ATTEND Internal Medicine
PROC: 0T9B70Z Drainage of Bladder with Drainage Device, Via Natural or Artificial Opening (ICD-10-PCS; principal; 2018-07-12)
DX: A41.9 Sepsis, unspecified organism (principal); G93.41 Metabolic encephalopathy; E43 Unspecified severe protein-calorie malnutrition; K92.0 Hematemesis; D68.69 Other thrombophilia; E87.2 Acidosis; J98.11 Atelectasis; D64.9 Anemia, unspecified; E11.65 Type 2 diabetes mellitus with hyperglycemia; E27.8 Other specified disorders of adrenal gland; E78.5 Hyperlipidemia, unspecified; E86.0 Dehydration; E87.6 Hypokalemia; F03.90 Unspecified dementia, unspecified severity, without behavioral disturbance, psychotic disturbance, mood disturbance, and anxiety; H91.90 Unspecified hearing loss, unspecified ear; I10 Essential (primary) hypertension; I48.91 Unspecified atrial fibrillation; K21.0 Gastro-esophageal reflux disease with esophagitis; R00.0 Tachycardia, unspecified; K44.9 Diaphragmatic hernia without obstruction or gangrene; Z78.1 Physical restraint status; Z79.01 Long term (current) use of anticoagulants; Z79.02 Long term (current) use of antithrombotics/antiplatelets; Z86.73 Personal history of transient ischemic attack (TIA), and cerebral infarction without residual deficits; Z68.28 Body mass index [BMI] 28.0-28.9, adult
CPT/HCPCS: 36415; 36600; 71045; 74177; 80048; 80053; 81001; 82140; 82803; 82962; 83605; 83735; 84100; 84145; 85014; 85018; 85025; 85610; 85730; 86850; 86900; 87040; 99285; G0378; J0610; J1756; J2543; J3480; C9113; J3475; J7030; J7040